=== PATIENT | female | born 1935 | race Asian ===

== ENCOUNTER 2022-02-11 15:15 | Emergency (ER) | payer MEDICARE, OTHER ==
[~2022-02-11] VITALS: Ht 152.4 cm; Wt 47.6 kg
[~2022-02-11 15:15] MED LIST: ASPI-605 PO
--- NOTE | 2022-02-11 18:33 | NUR ---
Pt back from CT, NAD noted. Daughter at bedside.
--- NOTE | 2022-02-11 19:10 | NUR ---
Received thorough report from LICHA cole RN .
--- NOTE | 2022-02-11 19:20 | NUR ---
Brief report taken from Suhail Licea RN. pt has nothing pending except the results of HeadCT then can be dced home with daughter. pt stable, AAOx4, PE WNL, VSS. Complaining of mild pain to lt side of head temporal regioin sustained from fall. EDMD ordered APAP 1g plus tdap.
[2022-02-11] MEDS ORDERED: ACETAMINOPHEN ES 500 MG TABLET PO ONE (19:45)
[2022-02-11] MEDS ORDERED: TDAP DIPH,PERTUSS,TET VAC/PF 0.5 ML DISP.SYRIN IM ONE ×2 (19:45→19:51)
[2022-02-11] MEDS ORDERED: ACETAMINOPHEN ES 500 MG TABLET ONE (19:49)
--- NOTE | 2022-02-11 19:50 | NUR ---
Meds admin to pt without difficulty. Pt tolerated well with no s/sxsof reaction/distress present. vacc injected to Lt deltoid without difficulty.
--- NOTE | 2022-02-11 20:20 | NUR ---
Pt given dc instructions along with daughter, Pt and daughter acknowledged understanding of DC plan. Pt signed out. Last BP 130/70, no other complaints. Pt stable, PE WNL. NO s/sxof distress present. Pt wheeled out to [facility] via [place] by myself and placed into daughters SUV. Pt and fam very thankful of services rendered.
[2022-02-11 20:45] VITALS: BP 130/70
== END 2022-02-11 20:20 | disposition home or self-care (01) ==
LOC: ER 15:15
DX: S51.811A Laceration without foreign body of right forearm, initial encounter (principal); R51.9 Headache, unspecified; E78.5 Hyperlipidemia, unspecified; Z79.82 Long term (current) use of aspirin; W01.0XXA Fall on same level from slipping, tripping and stumbling without subsequent striking against object, initial encounter; Y93.89 Activity, other specified; Y92.89 Other specified places as the place of occurrence of the external cause; Y99.8 Other external cause status
CPT/HCPCS: 70450; 72125; 90715; A9150